=== PATIENT | male | born 1970 | race Caucasian/White ===

== ENCOUNTER 2016-10-12 11:01 | Inpatient (IN) ==
--- NOTE | 2016-10-12 11:42 | History & Physical Report ---
Date of Encounter: 10/12/16 Time of Encounter: 11:41 24 Hour HP Update - Instructions Instructions: If the History and Physical is less than 30 days old and was completed prior to A.M. admission and or procedure and has NOT been updated on calendar day of procedure please complete this update prior to performing procedure. - Update Patient reports changes in Medical Condition: No Changes in examination, assessment, or condition: No Changes in Medication: No Preop tests/diagnostics Reviewed: Yes Pre-Op MRSA Screen: Negative Surgery Remains Indicated: Yes Consent for Planned Operative Procedure(s) Verified: Yes - Pre-Operative Checklist Preoperative Checklist Indicated: No Prophylactic Antibiotic Ordered: Yes Home Medications Include Beta Hi: No Beta Hi Taken Today (Day of Surgery): No Beta Hi Taken Yesterday (Day Prior to Surgery): No Is VTE Prophylaxis Indicated?: NO
[2016-10-12] MEDS ORDERED: Lidocaine -MPF 1% 2 ML VIAL ID ONE (11:45)
[2016-10-12] MEDS ORDERED: Plasma-Lyte A (PH 7.4) 1,000 ML IVC SCH (11:45)
[2016-10-12] MEDS ORDERED: cefOXitin 2,000 MG in D5% in Water (Mini-Bag+) 100 ML IVPB ONE (11:45)
[2016-10-12] MEDS ORDERED: Albuterol 2.5 MG/3 ML NEBULIZER IH ONE ×2 (11:47→13:16)
[2016-10-12 11:48] LABS: Amphetamine Screen,Urine Negative ng/mL (Cutoff=1000); Barbiturate Screen,Urine Negative ng/mL (Cutoff=200); Benzodiazepines Screen,Urine Negative ng/mL (Cutoff=200); Cannabinoid Screen,Urine Positive ng/mL (Cutoff = 50); Cocaine Screen,Urine Negative ng/mL (Cutoff= 300); Opiate Screen,Urine Negative ng/mL (Cutoff=300); Phencyclidine Screen,Urine Negative ng/mL (Cutoff=25)
[2016-10-12] MEDS ORDERED: Albuterol 2.5 MG/3 ML NEBULIZER ONE (11:50)
[2016-10-12] MEDS ORDERED: *HR* Rocuronium Bromide 50 MG/5 ML VIAL ONE (12:05)
[2016-10-12] MEDS ORDERED: Lidocaine -MPF 2% 2 ML VIAL ONE (12:05)
[2016-10-12] MEDS ORDERED: *HR* FentaNYL (PF) 100 MCG/2 ML VIAL ONE (12:05)
[2016-10-12] MEDS ORDERED: *HR* Propofol 200 MG/20 ML VIAL IVP ONE (12:05)
[2016-10-12] MEDS ORDERED: Ondansetron 4 MG/2 ML VIAL ONE (12:05)
[2016-10-12] MEDS ORDERED: *HR* Succinylcholine 200 MG/10 ML VIAL IVP ONE (12:05)
[2016-10-12] MEDS ORDERED: *HR* Midazolam HCl 5 MG/5 ML VIAL IVP ONE (12:07)
--- NOTE | 2016-10-12 12:21 | Anesthesia Evaluation PreOp ---
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: Denies Any Significant HX Other Medical History: Diabetes Type II, GERD Anesthesia History: No Prior Anesthetic Complications, Past Anesthesia Alcohol Use: occasionally (binge drinker, approximately 15 beers and 5 shots on Fridays) Drug use: cocaine (stopped 3-4 weeks ago), marijuana Medications and Allergies Amlodipine Besylate [Amlodipine Besylate] 10 mg PO DAILY 09/21/16 [History] Losartan Potassium [Cozaar] 50 mg PO DAILY 09/21/16 [History] Metformin HCl [Fortamet] 1,000 mg PO DAILY 09/21/16 [History] Omeprazole [PriLOSEC] 20 mg PO DAILY 09/21/16 [History] OxyCODONE/APAP 5/325 [Percocet 5/325 MG] 1 tab PO TID PRN 09/21/16 [History] 3 Allergy/AdvReac Type Severity Reaction Status Date / Time No Known Allergies Allergy Verified 10/12/16 11:25 - Meds/Allergy Pre-op Review Medications Reviewed: Yes Allergies Reviewed: Yes Beta Blockers on Current Med List: No Anesthesia Results - Labs Laboratory Tests 08/02/16 09/15/16 09/15/16 07:35 08:50 08:50 WBC 11.0 Hgb 15.3 Hct 47.0 Plt Count 285 PT 12.0 INR 1.1 APTT 35.3 Sodium 135 L Potassium 4.0 BUN 10 Creatinine 0.96 - Imaging EKG: report reviewed (09/15/2016 SINUS RHYTHM NONSPECIFIC T-WAVE ABNORMALITY) Anesthesia Exam O2 Sat Height 1.83 m Height 1.83 m Height 1.83 m Weight 97.976 kg Weight 97.976 kg Weight 97.976 kg O2 Sat by Pulse Oximetry 97 O2 Sat by Pulse Oximetry 97 Vital Signs Temp Pulse Resp BP Pulse Ox 98.2 F 93 18 142/102 97 10/12/16 11:21 10/12/16 11:21 10/12/16 11:21 10/12/16 11:21 10/12/16 11:21 Height: 6' Weight: 216 lbs NPO (# of Hours): 8 Pain Scale: 4 (abdomen) Pain Scale Used: Numeric (1 - 10) - HEENT Pupil (Motor): EOMI Mallampati: III Teeth: Normal, Missing Oral Opening: Greater than 3 - FLOODPLAIN MANAGER LOC: Oriented FLOODPLAIN MANAGER Motor: Normal RUE, Normal LUE, Normal RLE, Normal LLE, Normal Face FLOODPLAIN MANAGER Sensory: Normal: RUE, LUE, RLE, LLE, Face - Cardiac Rhythm: Regular Murmur: None - Pulmonary Breath Sounds: bilateral Clear Respiratory Effort: Symmetrical Anesthesia Assess/Plan ASA Score: 3 Modified Eleni Scale for Level of Consciousness: Cooperative, oriented, and tranquil Anesthetic Plan: General Monitoring Plan: Standard Monitors Recovery Plan: PACU
[2016-10-12] MEDS ORDERED: *HR* HYDROmorphone 2 MG/ML SYRINGE ONE ×2 (13:04→14:54)
[2016-10-12] MEDS ORDERED: *HR* Meperidine 25 MG/ML SYRINGE IVP PRN (13:16)
[2016-10-12] MEDS ORDERED: *HR* Labetalol 20 MG/4 ML SYRINGE IVP PRN (13:16)
[2016-10-12] MEDS ORDERED: *HR* Promethazine 25 MG/ML VIAL IVP PRN (13:16)
[2016-10-12] MEDS ORDERED: Neostigmine Methylsulfate 3 MG/3 ML SYRINGE ONE (14:48)
--- NOTE | 2016-10-12 15:00 | Operative Note ---
Date of procedure: 10/12/16 Pre-op diagnosis: Right colon mass/cancer Post-op diagnosis: same Procedure: Laparoscopic assisted right colectomy Anesthesia: NAYE Surgeon: Sher Ly Estimated blood loss (cc): 20 Specimen: Right colon Condition: stable Disposition: PACU Procedure in Detail: Date of surgery: After properly identifying the patient, the patient was brought to the operating room placed in supine position. After proper IV sedation was achieved followed by general endotracheal intubation, the patient's abdomen was prepped and draped in a normal sterile fashion. Ioban was placed over the epidermis. A timeout was performed noting the patient's name and type of procedure to be performed. First the supraumbilical incision with an 11 blade scalpel was made down to the rectus fascia. The rectus fascia was incised and a 12 mm port was placed through the incision. A suprapubic 5 mm port, and a right and left lower quadrant 5 mm port were placed under direct camera visualization. The patient was tilted to the left lateral side down position and the right lower quadrant was examined. The cecum was visualized and retracted medially with the laparoscopic DeBakey. During palpation it was noted that the mass effect or cancer and concern was in this region. The lateral sidewall attachment was dissected up towards the hepatic flexure with the laparoscopic LigaSure. Dissection was then carried out inferiorly from the level of the cecum and inclusive of the level of the terminal ileum. This allowed for more medial visceral rotation. Further dissection was then carried out between the omentum and the hepatic flexure allowing for retraction of the hepatic flexure inferiorly. Further adhesions and attachments were dissected free from the retroperitoneum. Once this was performed the hepatic flexure was retracted anteriorly and the mesentery was scored with Bovie cauterization and dissected with Bovie cauterization and the laparoscopic LigaSure. The duodenum was identified and retracted inferiorly and further dissection was carried out from the hepatic flexure did inferiorly towards the cecum. The ileocolic vessels were identified and transected with the laparoscopic LigaSure. The terminal ileum was examined and the combination of Bovie cauterization and usage of the laparoscopic LigaSure was used to dissect through the mesentery up to the distal ileum. The distal ileum was then transected with a laparoscopic CELESTINE stapler. Focus was then made at the level of the hepatic flexure/ transverse colon. The mesentery at this level was dissected away from the colon with Bovie cauterization and the laparoscopic LigaSure. This created a window for eventual transection. The distal ileal stump was grasped with an laparoscopic DeBakey and retracted superiorly up towards the midportion of the abdomen near the falciform ligament to ensure ease of mobility without tension. Once this was verified the decision was then made to convert this to the open procedure by removing all ports and making a supraumbilical midline incision extending from the 12 mm port upwards for length of approximately 7.5 cm. Bovie cauterization was used to dissect the subcutaneous tissue until the rectus fascia was encountered and incised. An Ajke retractor (medium size) was placed within opening and the transected terminal ileum was grasped and retracted out of the wound including the cecal mass and the right colon. The bare portion of the hepatic flexure/transverse colon was encountered and transected with the laparoscopic CELESTINE stapler. A [id number] anastomosis was then created between the distal ileum and the transverse colon with the 60 mm laparoscopic CELESTINE stapler. The enterotomy was closed with a TA stapler and imbricated with interrupted 3-0 silk sutures. The small mesenteric defect was reapproximated with a running 3-0 suture. This was placed back within the abdomen and the decision was made to complete the surgical procedure by placing Seprafilm within the abdomen and reapproximating the rectus fascia with 2 #1 Non -looped PDS sutures. The subcutaneous tissue was reapproximated with interrupted 0 Vicryl sutures and the epidermal and dermal layers and the remaining incisions were closed with alry. Needle, sponge, and instrument counts were correct 2 and the incision was covered with 4 x 4's and Band-Aids. The patient was aroused from IV sedation, extubated in the operating room without complication, and transported to the recovery room stable condition.
[2016-10-12] MEDS: *HR* HYDROmorphone (PF) 1 MG/ML SYRINGE IVP PRN ×6 (15:20→21:25)
[2016-10-12] MEDS ORDERED: *HR* HYDROmorphone (PF) 1 MG/ML SYRINGE ONE ×2 (15:22→15:34)
[2016-10-12] MEDS ORDERED: Ringers Solution, Lactated 1,000 ML ONE (15:55)
--- NOTE | 2016-10-12 16:07 | Anesthesia Evaluation Post Op ---
Date of Encounter: 10/12/16 Time of Encounter: 16:06 - Vital Signs Vital Signs: Last Vital Signs Temp 97.4 F L 10/12/16 15:38 Pulse 90 10/12/16 15:38 Resp 16 10/12/16 15:38 BP 154/105 10/12/16 15:38 Pulse Ox 94 10/12/16 15:38 - Lungs Lungs: Clear Ascult./Percussion - Airway Airway: Non-obstructed - Cardiovascular Regular Rate - Mental Status Mental Status: Alert & Oriented, Answers Appropriately - Pain Pain Scale: 4 - Nausea Vomiting Nausea Vomiting: Not Present - Hydration Hydration: Ice chips - Discharge PostOp Status: Transfer Patient to floor
[2016-10-12] MEDS ORDERED: Naloxone 0.4 MG/ML INJ IVP PRN (16:23)
[2016-10-12] MEDS: 0.9 % Sodium Chloride 1,000 ML IVC SCH (17:27)
[2016-10-12] MEDS: Ketorolac 30 MG/ML VIAL IM SCH (17:29)
[2016-10-12] MEDS: Piperacillin/Tazobactam 3.375 GM in D5% in Water (Mini-Bag+) 100 ML IVPB SCH (17:30)
[2016-10-13] MEDS: Piperacillin/Tazobactam 3.375 GM in D5% in Water (Mini-Bag+) 100 ML IVPB SCH ×2 (00:18→07:59)
[2016-10-13] MEDS: *HR* HYDROmorphone (PF) 1 MG/ML SYRINGE IVP PRN ×11 (00:19→23:49)
[2016-10-13] MEDS: Ketorolac 30 MG/ML VIAL IM SCH ×3 (00:19→11:34)
[2016-10-13 06:10] LABS: Basophils % 0.2 %; Hematocrit 39.7 % (37.5-50.1); Hemoglobin 13.4 g/dL (12.9-16.9); Immature Granulocytes % 0.7 % (0-4); Lymphocytes # 1.6 K/mcL (0.6-4.6); Lymphocytes % 9.3 %; Mean Corpuscular HGB Conc 33.8 g/dL (31.6-35.5); Mean Corpuscular Hemoglobin 29.5 pg (28.0-33.3); Mean Corpuscular Volume 87.4 fL (83.0-100.0); Mean Platelet Volume 10.5 fL (9.4-12.4); Monocytes # 0.8 K/mcL (0.0-1.3); Neutrophils # 14.2 K/mcL (1.6-8.9); Platelet Count 207 K/mcL (140-400); Red Blood Count 4.54 M/mcL (4.19-5.50); Segmented Neutrophils % 84.8 %
[2016-10-13 06:12] LABS: BUN/Creatinine Ratio 13 (6-26); Blood Urea Nitrogen 10 mg/dL (8-26); Calcium 8.6 mg/dL (8.6-10.8); Carbon Dioxide 25 mEq/L (19-29); Chloride 103 mEq/L (98-109); Glucose 132 mg/dL (70-99); Osmolality,Calculated 281 (280-300); Potassium 4.3 mEq/L (3.5-4.5); Sodium 135 mEq/L (136-145); eGFR For African Americans > 60 (> 60); eGFR For Non-African Americans > 60 (> 60)
[2016-10-13] MEDS: 0.9 % Sodium Chloride 1,000 ML IVC SCH ×3 (06:29→21:46)
[2016-10-13] MEDS: Pantoprazole 40 MG VIAL IVP SCH (07:58)
--- NOTE | 2016-10-13 12:17 | General Surgery Progress Note ---
Date of Encounter: 10/13/16 Time of Encounter: 12:16 - Assessment and Plan (1) S/P right colectomy Current Visit: Yes Status: Acute Patient is postop day 1 from a laparoscopic right colectomy. Overall he is doing well. Will start to advance to clears and continue to encourage out of bed and ambulation. We will also start oral pain medication. Await further return of bowel function. He did have evidence of leukocytosis which likely is related to his recent surgery. Will follow. Subjective Patient reports: other (The patient states that he is "hungry." No nausea. No BM or flatus. Noted incisional pain.) Objective Vital Signs - Last 8 Hours Temp Pulse Resp BP Pulse Ox 10/13/16 11:00 98.2 F 53 18 118/75 94 10/13/16 06:49 97 10/13/16 06:42 98.0 F 54 18 134/77 97 Intake and Output 10/12/16 10/13/16 10/13/16 23:59 07:59 15:59 Intake Total 0 / 0 1320 / 1320 1100 / 1100 Output Total 350 / 350 450 / 450 0 / 0 Balance -350 / -350 870 / 870 1100 / 1100 Intake: IV Fluids 1200 / 1200 1100 / 1100 0.9 % Sodium Chloride 1, 1000 / 1000 1000 / 1000 000 ML @ 100 mls/hr IVC . Q10H [facility] Rx#:[id number] Zosyn 3.375 GM In 200 / 200 100 / 100 Dextrose 5% (Minibag+) 100 ML 100 ML @ 25 mls/hr IVPB Q8HR PUSHPA Rx#: [id number] Oral 0 / 0 120 / 120 0 / 0 Output: Urine 0 / 0 Catheter 350 / 350 450 / 450 Other: Meal NPO Percent of Meal Consumed 0% Weight 75.795 kg Blood Glucose* 177 133 131 Patient Weight 10/13/16 23:59 Weight 75.795 kg - General physical appearance well nourished, no distress - Abdomen Abdomen: Present: bowel sounds present (Noted incisional pain. Dressing in place; CDI.), soft - Labs 10/13/16 05:19 10/13/16 05:19 Diabetes panel 10/13/16 Range/Units 05:19 Sodium 135 L (136-145) mEq/L Potassium 4.3 (3.5-4.5) mEq/L Chloride 103 (98-109) mEq/L Carbon Dioxide 25 (19-29) mEq/L BUN 10 (8-26) mg/dL Creatinine 0.77 (0.72-1.25) mg/dL Glucose 132 H (70-99) mg/dL Calcium 8.6 (8.6-10.8) mg/dL Calcium panel 10/13/16 Range/Units 05:19 Calcium 8.6 (8.6-10.8) mg/dL Pituitary panel 10/13/16 Range/Units 05:19 Sodium 135 L (136-145) mEq/L Potassium 4.3 (3.5-4.5) mEq/L Chloride 103 (98-109) mEq/L Carbon Dioxide 25 (19-29) mEq/L BUN 10 (8-26) mg/dL Creatinine 0.77 (0.72-1.25) mg/dL Glucose 132 H (70-99) mg/dL Calcium 8.6 (8.6-10.8) mg/dL Adrenal panel 10/13/16 Range/Units 05:19 Sodium 135 L (136-145) mEq/L Potassium 4.3 (3.5-4.5) mEq/L Chloride 103 (98-109) mEq/L Carbon Dioxide 25 (19-29) mEq/L BUN 10 (8-26) mg/dL Creatinine 0.77 (0.72-1.25) mg/dL Glucose 132 H (70-99) mg/dL Calcium 8.6 (8.6-10.8) mg/dL - VTE Documentation of Mechanical Device: Intermittent pneumatic compression device Consult Discharge Plan - Plan Referrals: Hussein Munoz MD [Primary Care Provider] - Sher Ly MD [Partnered Physician] - 10/26/16 11:40 am
[2016-10-13] MEDS: *HR* Heparin 5,000 UNIT/ML VIAL SQ SCH ×2 (15:59→18:03)
[2016-10-13] MEDS: Ketorolac 30 MG/ML VIAL IVP SCH ×2 (17:31→23:49)
[2016-10-14] MEDS: *HR* HYDROmorphone (PF) 1 MG/ML SYRINGE IVP PRN ×8 (02:34→21:59)
[2016-10-14 03:07] LABS: Basophils # 0.1 K/mcL (0.0-0.2); Basophils % 0.4 %; Eosinophils # 0.2 K/mcL (0.0-0.6); Eosinophils % 1.5 %; Hematocrit 37.6 % (37.5-50.1); Hemoglobin 12.4 g/dL (12.9-16.9); Immature Granulocytes % 0.2 % (0-4); Lymphocytes # 3.5 K/mcL (0.6-4.6); Lymphocytes % 27.1 %; Mean Platelet Volume 10.8 fL (9.4-12.4); Monocytes # 0.7 K/mcL (0.0-1.3); Neutrophils # 8.6 K/mcL (1.6-8.9); Platelet Count 182 K/mcL (140-400); Red Blood Count 4.13 M/mcL (4.19-5.50); Red Cell Distribution Width 12.5 % (11.5-14.5); Segmented Neutrophils % 65.8 %
[2016-10-14] MEDS: Ketorolac 30 MG/ML VIAL IVP SCH (05:33)
[2016-10-14] MEDS: *HR* Heparin 5,000 UNIT/ML VIAL SQ SCH ×2 (06:21→17:12)
[2016-10-14] MEDS: 0.9 % Sodium Chloride 1,000 ML IVC SCH (07:44)
[2016-10-14] MEDS: Pantoprazole 40 MG VIAL IVP SCH (07:46)
[2016-10-14] MEDS: *HR* OxyCODONE/APAP 10/325 TABLET PO PRN ×3 (08:51→20:22)
[2016-10-14] MEDS ORDERED: Ibuprofen 800 MG TABLET PO PRN (10:28)
[2016-10-14] MEDS: Nicotine 21 MG PATCH.TD24 TD SCH (10:55)
--- NOTE | 2016-10-14 11:05 | General Surgery Progress Note ---
<Liz Gillespie Nataliya - Last Filed: 10/14/16 11:03> Date of Encounter: 10/14/16 Time of Encounter: 10:30 - Assessment and Plan (1) S/P right colectomy Status: Acute Advance to soft, chopped meat diet saline lock IV fluids Supportive care/pain control- Percocet prn and Dilaudid for BTP, Ibuprofen scheduled every 8 hours Increase activity as tolerated- ambulate hallways Daily dressing change IS every 1 hour while awake PPI therapy daily Pathology pending (2) Nicotine dependence unspecified, with withdrawal Status: Acute Smoking cessation education Nicotine patch daily Qualifiers: Nicotine product type: cigarettes Qualified Code(s): F17.213 - Nicotine dependence, cigarettes, with withdrawal (3) DVT prophylaxis Status: Acute Ambulate hallways TID Heparin 5,000 units SQ twice daily for DVT prophylaxis Subjective Patient reports: no new complaints, feels better, still having pain, pain is less, tolerating liquids well, voiding w/o difficulty, flatus, no bowel movement , afebrile Objective Vital Signs - Last 8 Hours Temp Pulse Resp BP Pulse Ox 10/14/16 10:26 95 10/14/16 06:57 95 10/14/16 06:49 98.2 F 57 18 133/84 95 10/14/16 03:41 98.2 F 56 14 128/81 96 Intake and Output 10/13/16 10/14/16 10/14/16 23:59 07:59 15:59 Intake Total 1745 / 1745 1120 / 1120 360 / 360 Output Total 0 / 0 600 / 600 400 / 400 Balance 1745 / 1745 520 / 520 -40 / -40 Intake: IV Fluids 1385 / 1385 1000 / 1000 0.9 % Sodium Chloride 1, 1385 / 1385 1000 / 1000 000 ML @ 100 mls/hr IVC . Q10H PUSHPA Rx#:[id number] Oral 360 / 360 120 / 120 360 / 360 Output: Urine 0 / 0 600 / 600 400 / 400 Other: Meal Clear # Voids 1 Weight 76.4 kg Blood Glucose* 138 102 Patient Weight 10/14/16 23:59 Weight 76.4 kg - General physical appearance well developed, well nourished, no distress - Eyes normal ocular movement - ENT normal mucosa, atraumatic, normocephalic - Neck Neck exam: trachea midline - Respiratory normal respiratory effort, clear to auscultation - Cardiovascular Cardiovascular exam: Present: RRR - Abdomen Abdomen: Present: bowel sounds present, soft, tender (expected post-operative tenderness) - Incision Incision: Present: clean and dry, intact - Neurologic CN 2-12 grossly intact - Musculoskeletal normal gait, normal posture - Psychiatric oriented to time, oriented to person, oriented to place, speech is normal, memory intact - Labs 10/14/16 02:42 10/13/16 05:19 - VTE Documentation of Mechanical Device: Intermittent pneumatic compression device Consult Discharge Plan - Plan Instructions: Acute Wound Care (DC) Additional Instructions: #1 may shower, no tub bath or swimming for 2 weeks #2 wash incisions with soap and water and pat dry daily #3 no lifting, pushing, pulling more than 15 pounds for the next 6 weeks #4 no driving until off narcotics for 24 hours and able to safely react in the car #5 may climb stairs Referrals: Hussein Munoz MD [Primary Care Provider] - Sher Ly MD [Partnered Physician] - 10/26/16 11:40 am Prescriptions: Docusate [Colace] 100 mg PO BID #60 OxyCODONE/APAP 10/325 [Percocet 10/325 MG] 1 each PO Q4H PRN #39 tab PRN Reason: Moderate Pain - Attending Attestation For this encounter, I have reviewed the OLIVE PITTER or PA documentation, treatment plan, and medical decision making; and I have had face to face time with this patient. <Sher Ly - Last Filed: 10/17/16 12:14> Date of Encounter: 10/14/16 - Assessment and Plan (1) S/P right colectomy Status: Acute Objective - Labs 10/15/16 04:02 10/15/16 04:02 - Attending Attestation I reviewed the above assessment and evaluation and agree with the above plan. Continue to advance diet. Consider discharge home within the next 24 hours.
--- NOTE | 2016-10-14 16:19 | Discharge Summary ---
Date of Encounter: 10/14/16 Time of Encounter: 16:17 - Discharge Diagnosis (1) S/P right colectomy Priority: Primary Status: Acute (2) Nicotine dependence unspecified, with withdrawal Priority: Secondary Status: Acute Qualifiers: Nicotine product type: cigarettes Qualified Code(s): F17.213 - Nicotine dependence, cigarettes, with withdrawal (3) DVT prophylaxis Priority: Secondary Status: Acute - Discharge Medications Prescriptions: Docusate [Colace] 100 mg PO BID #60 OxyCODONE/APAP 10/325 [Percocet 10/325 MG] 1 each PO Q4H PRN #39 tab PRN Reason: Moderate Pain Home Medications: Amlodipine Besylate 10 mg PO DAILY 09/21/16 [History] Losartan Potassium [Cozaar] 50 mg PO DAILY 09/21/16 [History] Metformin HCl [Fortamet] 1,000 mg PO DAILY 09/21/16 [History] Omeprazole [PriLOSEC] 20 mg PO DAILY 09/21/16 [History] Docusate [Colace] 100 mg PO BID #60 10/14/16 [Rx] OxyCODONE/APAP 10/325 [Percocet 10/325 MG] 1 each PO Q4H PRN #39 tab 10/14/16 [ Rx] Allergies/Adverse Reactions: 3 Allergy/AdvReac Type Severity Reaction Status Date / Time No Known Allergies Allergy Verified 10/12/16 11:25 General Surgery Exam Initial Vital Signs Temp Pulse Resp BP Pulse Ox 98.2 F 93 18 142/102 97 10/12/16 11:21 10/12/16 11:21 10/12/16 11:21 10/12/16 11:21 10/12/16 11:21 Date of admission: 10/12/16 16:22 Primary care physician: Hussein Munoz MD Discharging clinician: Hussein Rodriguez ([facility]) Anticipated date of discharge: 10/15/16 - Patient Status Disposition: Home, Self-Care Condition: Good Functional capacity at discharge: independent ambulation Overall status at discharge: patient is progressing back to baseline - Discharge Instructions Follow Up With: Hussein Munoz MD [Primary Care Provider] - Sher Ly MD [Partnered Physician] - 10/26/16 11:40 am Additional Instructions: #1 may shower, no tub bath or swimming for 2 weeks #2 wash incisions with soap and water and pat dry daily #3 no lifting, pushing, pulling more than 15 pounds for the next 6 weeks #4 no driving until off narcotics for 24 hours and able to safely react in the car #5 may climb stairs - Diet and Activity Activity: other (See additional instructions above) Diet: advance to your usual diet - Hospital Course Hospital course: Mr. Sosa is a 46 year old male who is seen and evaluated by Dr. Ly as an outpatient for a colonic mass. He was admitted to the hospital after undergoing a laparoscopic right colectomy with Dr. Ly. He has had return of bowel function and is tolerating a soft diet without nausea or vomiting. His vital signs are stable and he is afebrile. His pain is well-controlled. He is voiding and ambulating without difficulty. His pathology is pending. We will begin discharge planning to home and plan for outpatient follow-up in the next 10-14 days. - Time Spent with Patient Total time spent providing and/or coordinating discharge services: Less than 30 minutes Labs on day of discharge: Labs from last 24 hours 10/14/16 10/14/16 10/14/16 11:45 06:59 02:42 WBC 13.0 H RBC 4.13 L Hgb 12.4 L Hct 37.6 MCV 91.0 MCH 30.0 MCHC 33.0 RDW 12.5 Plt Count 182 MPV 10.8 Immature Gran % 0.2 Seg Neutrophils % 65.8 Lymphocytes % 27.1 Monocytes % 5.0 Eosinophils % 1.5 Basophils % 0.4 Neutrophils # 8.6 Lymphocytes # 3.5 Monocytes # 0.7 Eosinophils # 0.2 Basophils # 0.1 POC Glucose 105 H 102 H 10/13/16 10/13/16 20:42 16:13 WBC RBC Hgb Hct MCV MCH MCHC RDW Plt Count MPV Immature Gran % Seg Neutrophils % Lymphocytes % Monocytes % Eosinophils % Basophils % Neutrophils # Lymphocytes # Monocytes # Eosinophils # Basophils # POC Glucose 138 H 137 H
[2016-10-15 04:46] LABS: Basophils # 0.1 K/mcL (0.0-0.2); Basophils % 0.6 %; Eosinophils # 0.4 K/mcL (0.0-0.6); Eosinophils % 3.9 %; Hematocrit 38.9 % (37.5-50.1); Hemoglobin 12.6 g/dL (12.9-16.9); Immature Granulocytes % 0.6 % (0-4); Lymphocytes # 2.5 K/mcL (0.6-4.6); Lymphocytes % 23.7 %; Mean Corpuscular HGB Conc 32.4 g/dL (31.6-35.5); Mean Corpuscular Hemoglobin 28.6 pg (28.0-33.3); Mean Corpuscular Volume 88.4 fL (83.0-100.0); Mean Platelet Volume 10.4 fL (9.4-12.4); Monocytes # 0.7 K/mcL (0.0-1.3); Monocytes % 6.4 %; Neutrophils # 6.7 K/mcL (1.6-8.9); Platelet Count 186 K/mcL (140-400); Red Cell Distribution Width 12.2 % (11.5-14.5); Segmented Neutrophils % 64.8 %
[2016-10-15] MEDS: *HR* OxyCODONE/APAP 10/325 TABLET PO PRN (04:47)
[2016-10-15 04:58] LABS: BUN/Creatinine Ratio 10 (6-26); Blood Urea Nitrogen 8 mg/dL (8-26); Calcium 8.9 mg/dL (8.6-10.8); Carbon Dioxide 28 mEq/L (19-29); Chloride 103 mEq/L (98-109); Glucose 98 mg/dL (70-99); Osmolality,Calculated 284 (280-300); Potassium 3.7 mEq/L (3.5-4.5); Sodium 138 mEq/L (136-145); eGFR For African Americans > 60 (> 60); eGFR For Non-African Americans > 60 (> 60)
[2016-10-15] MEDS: *HR* Heparin 5,000 UNIT/ML VIAL SQ SCH (05:52)
[2016-10-15 07:10] VITALS: BP 158/99
[2016-10-15] MEDS: Nicotine 21 MG PATCH.TD24 TD SCH (09:01)
== END 2016-10-15 09:56 | disposition home or self-care (01) | DRG 330 ==
LOC: SAMDAY 11:01 → 3ANU 16:22
PROVIDERS: ADMIT Surgery; ATTEND Surgery